=== PATIENT | female | born 1955 | race American Indian/Alaskan Native ===

== ENCOUNTER 2019-05-12 10:15 | Inpatient (IN) | payer OTHER ==
--- NOTE | 2019-05-12 11:32 | XRay Report ---
CHEST 2 VIEWS INDICATION: Chest Pain. COMPARISON: 06/24/2013 FINDINGS: Support devices: None. Heart: Mildly enlarged. Pulmonary vasculature: Increased. Lungs/pleura: No acute air space or interstitial disease. No pneumothorax. Additional findings: None. IMPRESSION: 1. Cardiomegaly and pulmonary venous hypertension. 2. No pulmonary edema, pleural effusion or pneumonia. Signer Name: Amandeep Pelaez MD Signed: 05/12/2019 11:28 AM Workstation Name: [id number]
--- NOTE | 2019-05-12 11:48 | Emergency Department Report ---
HPI - General Chief Complaint: Chest Pain Time Seen by Provider: 05/12/19 11:28 - HPI HPI: Room 24 The patient is a 64-year-old female presenting with chief complaint of chest pain. The patient states for the past 3 days she's had pain in her right upper extremity described as a constant "hurt." The patient states for the past 3 days she's also had intermittent substernal chest pain described as "striking" in nature. The patient states the pain comes and goes but has been increasing in frequency today. Patient denies shortness of breath or diaphoresis. Patient states she is chronically nauseous but has not experienced any vomiting. Patient states she's also been coughing for the past 2 days her cough has been nonproductive. Patient admits to subjective fever. Patient's last stress test occurred over 5 years ago and she's never had a cardiac catheterization Location: [See above] Duration: [See above] Quality: [See above] Severity: [See above] Timing: [See above] Context: [See above] Modifying factors: [See above] Associated signs and symptoms: [see above] ED Past Medical Hx - Past Medical History Hx Hypertension: Yes - Surgical History Additional Surgical History: Partial gastrectomy - Family History Family history: no significant - Social History Smoking Status: Never Smoker Substance Use Type: None - Medications Home Medications: Home Medications Medication Instructions Recorded Confirmed Last Taken Type Ibuprofen [Motrin 600 MG tab] 600 mg PO Q8H PRN #60 tablet 05/10/13 05/12/19 05/12/19 Rx Albuterol Sulfate [Ventolin HFA] 2 puff IH Q4H PRN #1 hfa.aer.ad 06/24/13 05/12/19 05/12/19 Rx Lisinopril [Zestril TAB] 20 mg PO QDAY #30 tablet 06/24/13 05/12/19 05/12/19 Rx Promethazine [Phenergan] 25 mg PO Q6HR PRN 05/12/19 05/12/19 05/07/19 History ED Review of Systems ROS: Stated complaint: CHEST PAIN/TIGHTNESS/WEAKNESS Other details as noted in HPI Constitutional: fever (subjective). denies: diaphoresis Eyes: denies: eye pain ENT: denies: throat pain Respiratory: denies: shortness of breath Cardiovascular: chest pain Endocrine: no symptoms reported Gastrointestinal: denies: vomiting Genitourinary: denies: dysuria Musculoskeletal: myalgia Neurological: denies: headache Physical Exam - Physical Exam Vital Signs: Vital Signs 05/12/19 10:37 Temperature 97.6 F Pulse Rate 66 Respiratory 20 Rate Blood Pressure 200/93 O2 Sat by Pulse 98 Oximetry Physical Exam: GENERAL: The patient is well-developed well-nourished female lying on stretcher not appearing to be in acute distress. [] HEENT: Normocephalic. Atraumatic. Extraocular motions are intact. Patient has moist mucous membranes. NECK: Supple. Trachea midline CHEST/LUNGS: Clear to auscultation. There is no respiratory distress noted. HEART/CARDIOVASCULAR: Regular. There is no tachycardia. There is no gallop rub or murmur. ABDOMEN: Abdomen is soft, nontender. Patient has normal bowel sounds. There is no abdominal distention. SKIN: There is no rash. There is no edema. There is no diaphoresis. NEURO: The patient is awake, alert, and oriented. The patient is cooperative. The patient has normal speech MUSCULOSKELETAL: There is no evidence of acute injury. ED Course Vital Signs 05/12/19 10:37 Temperature 97.6 F Pulse Rate 66 Respiratory 20 Rate Blood Pressure 200/93 O2 Sat by Pulse 98 Oximetry ED Medical Decision Making - Lab Data Result diagrams: 05/12/19 13:33 05/12/19 10:54 Laboratory Tests 05/12/19 05/12/19 05/12/19 10:54 10:54 11:43 WBC TNR RBC TNR Hgb TNR Hct TNR MCV TNR MCH TNR MCHC TNR RDW TNR Plt Count TNR Lymph % (Auto) TNR [place] % (Auto) TNR Eos % (Auto) TNR Baso % (Auto) TNR Lymph # TNR [place] # TNR Eos # TNR Baso # TNR Seg Neutrophils % TNR Seg Neutrophils # TNR D-Dimer Sodium 142 Potassium 3.9 Chloride 106.3 Carbon Dioxide 22 Anion Gap 18 BUN 9 Creatinine 0.6 L Estimated GFR > 60 BUN/Creatinine Ratio 15 Glucose 121 H Calcium 8.8 Total Bilirubin 0.20 AST 15 ALT < 5 L Alkaline Phosphatase 78 Total Creatine Kinase 157 H CK-MB (CK-2) 2.5 CK-MB (CK-2) Rel Index 1.5 Troponin T < 0.010 NT-Pro-B Natriuret Pep 25.26 Total Protein 7.4 Albumin 3.5 L Albumin/Globulin Ratio 0.9 05/12/19 05/12/19 12:01 13:33 WBC 6.6 RBC 4.34 Hgb 11.1 Hct 35.9 MCV 83 MCH 26 L MCHC 31 RDW 15.6 H Plt Count 292 Lymph % (Auto) 23.5 [place] % (Auto) 6.4 Eos % (Auto) 2.2 Baso % (Auto) 0.8 Lymph # 1.6 [place] # 0.4 Eos # 0.1 Baso # 0.1 Seg Neutrophils % 67.1 Seg Neutrophils # 4.5 D-Dimer 375.04 H Sodium Potassium Chloride Carbon Dioxide Anion Gap BUN Creatinine Estimated GFR BUN/Creatinine Ratio Glucose Calcium Total Bilirubin AST ALT Alkaline Phosphatase Total Creatine Kinase CK-MB (CK-2) CK-MB (CK-2) Rel Index Troponin T NT-Pro-B Natriuret Pep Total Protein Albumin Albumin/Globulin Ratio - EKG Data -: EKG Interpreted by Me EKG shows normal: sinus rhythm Rate: normal - EKG Data When compared to previous EKG there are: previous EKG unavailable Interpretation: nonspecific ST-T wave zainab (T-wave inversion in lead V2) - Radiology Data Radiology results: report reviewed (chest x-ray, CT chest), image reviewed (chest x-ray, CT chest) interpreted by me: Chest x-ray-no focal infiltrate, no pneumothorax [facility] [address] [place] [address] XRay Report Signed Patient: JAZMÍN PATE MR#: [id number] : 1955 Acct:[id number] Age/Sex: 64 / F ADM Date: 05/12/19 Loc: ED Attending Dr: Ordering Physician: CARMEN ROBERTS MD Date of Service: 05/12/19 Procedure(s): XR chest routine 2V Accession Number(s): [id number] cc: CARMEN ROBERTS MD Fluoro Time In Minutes: CHEST 2 VIEWS INDICATION: Chest Pain. COMPARISON: 06/24/2013 FINDINGS: Support devices: None. Heart: Mildly enlarged. Pulmonary vasculature: Increased. Lungs/pleura: No acute air space or interstitial disease. No pneumothorax. Additional findings: None. IMPRESSION: 1. Cardiomegaly and pulmonary venous hypertension. 2. No pulmonary edema, pleural effusion or pneumonia. Signer Name: Zak Dwyer MD Signed: 05/12/2019 11:28 AM Workstation Name: [id number] Transcribed By: REF Dictated By: ZAK DWYER MD Electronically Authenticated By: ZAK DWYER MD Signed Date/Time: 05/12/19 1128 DD/ 112 TD/TT: [facility] [address] [place] [address] Cat Scan Report Signed Patient: JAZMÍN PATE MR#: [id number] : 1955 Acct:[id number] Age/Sex: 64 / F ADM Date: 05/12/19 Loc: ED Attending Dr: Ordering Physician: CARMEN ROBERTS MD Date of Service: 05/12/19 Procedure(s): CT angio chest Accession Number(s): [id number] cc: CARMEN ROBERTS MD CTA of the chest with 3D Reconstruction Indication: ,chest pain Technique: TECHNIQUE: Axial CT images were obtained through the chest after injection of 100 cc of Omnipaque 350 IV contrast. 3 plane MIP reconstructions were produced. All CT scans at this location are perf ormed using CT dose reduction for ALARA by means of automated exposure control. COMPARISON: None Automatic exposure control was utilized in an attempt to reduce radiation dose. Findings: Pulmonary arteries: The main pulmonary artery and right and left pulmonary artery branches fill satisfactorily with contrast. No pulmonary embolus is seen. Lungs: There is mild peripheral interstitial disease in the lower lung zones. No focal infiltrate is seen. Mediastinum: Heart is mildly enlarged. There is a small hiatal hernia. Aorta: Normal in diameter. No dissection seen within limits of this exam. There is a cyst in the dome of the liver. Impression: No pulmonary embolus is seen Signer Name: Vance Capps MD Signed: 05/12/2019 3:41 PM Workstation Name: [id number] Transcribed By: SS Dictated By: Vance Capps MD Electronically Authenticated By: Vance Capps MD Signed Date/Time: 05/12/19 1541 DD/ 1538 TD/TT: - Differential Diagnosis ACS, pericarditis, pneumonia, PE Critical care attestation.: If time is entered above; I have spent that time in minutes in the direct care of this critically ill patient, excluding procedure time. ED Disposition Clinical Impression: Chest pain Disposition: OP ADMIT IP TO THIS HOSP Is pt being admited?: Yes Does the pt Need Aspirin: Yes Condition: Fair Instructions: Chest Pain (ED) Referrals: PRIMARY CARE,MD [Primary Care Provider] - 3-5 Days Time of Disposition: 15:50 (hospitalist paged (Dr Bryan))
[2019-05-12] MEDS ORDERED: cloNIDine 0.2 MG TAB PO ONE (11:49)
[2019-05-12 12:03] LABS: Albumin 3.5 g/dL (3.9-5); BUN/Creatinine Ratio 15; Blood Urea Nitrogen 9 mg/dL (7-17); Calcium 8.8 mg/dL (8.4-10.2); Hemolysis Index 3
[2019-05-12 12:10] LABS: Alanine Aminotransferase < 5 units/L (7-56)
[2019-05-12 12:13] LABS: Red Blood Count TNR M/mm3 (3.65-5.03)
[2019-05-12 12:14] LABS: Hematocrit TNR % (30.3-42.9); Hemoglobin TNR gm/dl (10.1-14.3)
[2019-05-12 12:33] LABS: Creatine Kinase MB 2.5 ng/mL (0.0-4.0)
[2019-05-12 12:42] LABS: Mean Corpuscular HGB Conc TNR % (30-34); Mean Corpuscular Volume TNR fl (79-97); Red Cell Distribution Width TNR % (13.2-15.2)
[2019-05-12 12:43] LABS: Eosinophils % (Auto) TNR % (0.0-4.3); Lymphocytes % (Auto) TNR % (13.4-35.0); Monocytes % (Auto) TNR % (0.0-7.3); Platelet Count TNR K/mm3 (140-440)
[2019-05-12 12:44] LABS: Basophils # (Auto) TNR K/mm3 (0.0-0.1); Basophils % (Auto) TNR % (0.0-1.8); Eosinophils # (Auto) TNR K/mm3 (0.0-0.4); Lymphocytes # (Auto) TNR K/mm3 (1.2-5.4); Monocytes # (Auto) TNR K/mm3 (0.0-0.8)
[2019-05-12 13:47] LABS: Basophils # (Auto) 0.1 K/mm3 (0.0-0.1); Basophils % (Auto) 0.8 % (0.0-1.8); Eosinophils # (Auto) 0.1 K/mm3 (0.0-0.4); Eosinophils % (Auto) 2.2 % (0.0-4.3); Hematocrit 35.9 % (30.3-42.9); Hemoglobin 11.1 gm/dl (10.1-14.3); Lymphocytes # (Auto) 1.6 K/mm3 (1.2-5.4); Lymphocytes % (Auto) 23.5 % (13.4-35.0); Mean Corpuscular HGB Conc 31 % (30-34); Mean Corpuscular Volume 83 fl (79-97); Monocytes # (Auto) 0.4 K/mm3 (0.0-0.8); Monocytes % (Auto) 6.4 % (0.0-7.3); Platelet Count 292 K/mm3 (140-440); Red Blood Count 4.34 M/mm3 (3.65-5.03); Red Cell Distribution Width 15.6 % (13.2-15.2)
--- NOTE | 2019-05-12 15:46 | Cat Scan Report ---
CTA of the chest with 3D Reconstruction Indication: ,chest pain Technique: TECHNIQUE: Axial CT images were obtained through the chest after injection of 100 cc of Omnipaque 350 IV contrast. 3 plane MIP reconstructions were produced. All CT scans at this location are performed using CT dose reduction for ALARA by means of automated exposure control. COMPARISON: None Automatic exposure control was utilized in an attempt to reduce radiation dose. Findings: Pulmonary arteries: The main pulmonary artery and right and left pulmonary artery branches fill satis factorily with contrast. No pulmonary embolus is seen. Lungs: There is mild peripheral interstitial disease in the lower lung zones. No focal infiltrate is seen. Mediastinum: Heart is mildly enlarged. There is a small hiatal hernia. Aorta: Normal in diameter. No dissection seen within limits of this exam. There is a cyst in the dome of the liver. Impression: No pulmonary embolus is seen Signer Name: Vance Capps MD Signed: 05/12/2019 3:41 PM Workstation Name: [id number]
[2019-05-12] MEDS ORDERED: ASPIRIN 325 MG TAB PO ONE (15:51)
[2019-05-12] MEDS ORDERED: IBUPROFEN 600 MG TAB PO PRN (21:25)
[2019-05-12] MEDS ORDERED: ALBUTEROL 8.5 GM INHALATION IH PRN (21:25)
[2019-05-12] MEDS ORDERED: HYDROmorphone 1 MG/1 ML INJ IV PRN (21:27)
[2019-05-12] MEDS ORDERED: ALBUTEROL 2.5 MG/3 ML NEBU IH PRN (21:45)
[2019-05-12] MEDS: FAMOTIDINE 20 MG/2 ML INJ IV SCH (21:52)
[2019-05-12] MEDS: LISINOPRIL 20 MG TAB PO SCH (21:53)
[2019-05-12] MEDS ORDERED: SODIUM CHLORIDE 0.9% 1000 ML 1,000 ML IV SCH (22:00)
--- NOTE | 2019-05-12 22:20 | Event Note ---
Date: 05/12/19 See history and physical IN the reports Chest pain rule out SD Hypertension mild malnutrition
--- NOTE | 2019-05-12 22:30 | History and Physical Report ---
CHIEF COMPLAINT: Left-sided chest pain for 3 days. HISTORY OF PRESENT ILLNESS: A 64-year-old female, who comes in for left-sided chest pain. Chest pain also radiates to the right extremity. Chest pain is retrosternal. Also, radiating to the epigastric region, intermittent in nature. No diaphoresis, no shortness of breath. No palpitations. No nausea or vomiting. The patient had stress test 5 years ago, but never had a cardiac catheterization. No exacerbating or relieving factors. PAST MEDICAL HISTORY: Significant for hypertension. PAST SURGICAL HISTORY: Significant for partial gastrectomy. FAMILY HISTORY: No significance. SOCIAL HISTORY: Never a smoker. Does not do alcohol or drugs. CURRENT MEDICATIONS: Lisinopril 20 mg once a day and albuterol 2 puffs q.4 hours p.r.n. REVIEW OF SYSTEMS: Significant for left-sided and retrosternal chest pain, intermittent in nature for 3 days. Otherwise, review of systems negative. PHYSICAL EXAMINATION: GENERAL: Elderly female, cooperative during examination. VITAL SIGNS: Blood pressure is 145/71, temperature is 98 and pulse is 61. HEENT: Unremarkable. Pupils are equal and reactive. NECK: Supple. No carotid artery bruit, no thyromegaly. LUNGS: Clear to auscultation and percussion. Good air entry. CARDIOVASCULAR: S1, S2 heard. No gallop, no murmur, no rub. Apical impulse in left fifth intercostal space and midclavicular line. ABDOMEN: Soft and benign. No hepatosplenomegaly. No guarding, no rigidity. Hernial orifices are normal. EXTREMITIES: Good pedal pulses. No pedal edema. CENTRAL NERVOUS SYSTEM: Alert and oriented x 4, nonfocal exam. SKIN: Normal. LABORATORY DATA: Significant for normal CBC. D-dimer is 375. Electrolytes are normal. Hemoglobin A1c is 6.3, glucose is 121, slightly high. Total CK is 157, CK-MB is 2.5, which is normal. First troponin is normal and albumin is 3.5. EKG shows sinus rhythm, heart rate of 72 per minute. No LVH. No ectopics. Chest x-ray, no acute findings. ASSESSMENT AND PLAN: 1. Chest pain, rule out myocardial infarction protocol. Serial troponins. Lexiscan in the morning. Cardiology consult requested. 2. Hypertension. Continue home antihypertensives in the form of lisinopril 20 mg once a day. 3. Asthma/chronic obstructive pulmonary disease. Continue Ventolin HFA p.r.n. 4. Arthritis. Continue ibuprofen p.r.n. 5. Deep venous thrombosis prophylaxis, heparin 5000 q.12 hours. 6. Malnutrition, very mild. Albumin is 3.5. May be dietary supplements and GI prophylaxis. JOB# [id number] ROXANE/NTS
[2019-05-13] MEDS: ONDANSETRON 4 MG/2 ML INJ IV PRN ×3 (01:16→21:34)
[2019-05-13] MEDS ORDERED: MAGNESIUM OXIDE 400 MG TAB PO ONE (01:30)
[2019-05-13 06:34] LABS: Albumin 3.6 g/dL (3.9-5); BUN/Creatinine Ratio 17; Blood Urea Nitrogen 12 mg/dL (7-17); Calcium 8.5 mg/dL (8.4-10.2); Hemolysis Index 0
[2019-05-13 06:37] LABS: Alanine Aminotransferase < 5 units/L (7-56)
[2019-05-13] MEDS ORDERED: REGADENOSON 0.4 MG/5 ML INJ IV ONE ×2 (09:12→09:25)
--- NOTE | 2019-05-13 10:59 | Consultation ---
History of Present Illness Consult date: 05/13/19 Consult reason: chest pain History of present illness: The patient is a 64-year-old female presenting with chief complaint of chest pain. The patient states for the past 3 days she's had pain in her right upper extremity described as a constant. The patient states for the past 3 days she's also had intermittent substernal chest pain described as "striking" in nature. Patient's last stress test occurred over 5 years ago and she's never had a cardiac catheterization Past History Past Medical History: hypertension Past Surgical History: Other (partial gastrectomy) Social history: no significant social history Family history: no significant family history Medications and Allergies Allergies Allergy/AdvReac Type Severity Reaction Status Date / Time Penicillins Allergy Rash Verified 05/12/19 12:22 Home Medications Medication Instructions Recorded Confirmed Last Taken Type Ibuprofen [Motrin 600 MG tab] 600 mg PO Q8H PRN #60 tablet 05/10/13 05/12/19 05/12/19 Rx Albuterol Sulfate [Ventolin HFA] 2 puff IH Q4H PRN #1 hfa.aer.ad 06/24/13 05/12/19 05/12/19 Rx Lisinopril [Zestril TAB] 20 mg PO QDAY #30 tablet 06/24/13 05/12/19 05/12/19 Rx Promethazine [Phenergan] 25 mg PO Q6HR PRN 05/12/19 05/12/19 05/07/19 History Active Meds: Active Medications Acetaminophen (Tylenol) 650 mg PO Q4H PRN PRN Reason: Pain MILD(1-3)/Fever >100.5/PORTILLO Albuterol (Proventil) 2.5 mg IH Q4HRT PRN PRN Reason: Cough Famotidine (Pepcid) 20 mg IV BID NIALL Last Admin: 05/12/19 21:52 Dose: 20 mg Documented by: Hydromorphone HCl (Dilaudid) 0.5 mg IV Q3H PRN PRN Reason: Pain , Severe (7-10) Last Admin: 05/12/19 21:51 Dose: 0.5 mg Documented by: Sodium Chloride (Nacl 0.9% 1000 Ml) 1,000 mls @ 42 mls/hr IV DIRECT NIALL Ibuprofen (Ibuprofen) 600 mg PO Q8H PRN PRN Reason: Pain Lisinopril (Zestril) 20 mg PO QDAY [facility] Last Admin: 05/12/19 21:53 Dose: 20 mg Documented by: Ondansetron HCl (Zofran) 4 mg IV Q8H PRN PRN Reason: Nausea And Vomiting Last Admin: 05/13/19 05:12 Dose: 4 mg Documented by: Promethazine HCl (Phenergan) 25 mg PO Q6HR PRN PRN Reason: Nausea Sodium Chloride (Sodium Chloride Flush Syringe 10 Ml) 10 ml IV BID [facility] Last Admin: 05/12/19 21:52 Dose: 10 ml Documented by: Sodium Chloride (Sodium Chloride Flush Syringe 10 Ml) 10 ml IV PRN PRN PRN Reason: LINE FLUSH Review of Systems All systems: negative Physical Examination Vital Signs Temp Pulse Resp BP Pulse Ox 97.6 F 66 20 200/93 98 05/12/19 10:37 05/12/19 10:37 05/12/19 10:37 05/12/19 10:37 05/12/19 10:37 General appearance: no acute distress Neck: Positive: neck supple Cardiac: Positive: Reg Rate and Rhythm Lungs: Positive: Normal Exam Neuro: Positive: Grossly Intact Abdomen: Positive: Soft Extremities: Present: normal Results 05/12/19 13:33 05/13/19 05:10 Cardiac Enzymes 05/12/19 05/12/19 05/13/19 Range/Units 10:54 11:43 05:10 AST 15 12 (5-40) units/L CK-MB (CK-2) 2.5 (0.0-4.0) ng/mL CBC 05/12/19 05/12/19 Range/Units 10:54 13:33 WBC TNR 6.6 RBC TNR 4.34 Hgb TNR 11.1 Hct TNR 35.9 Plt Count TNR 292 Lymph # TNR 1.6 [place] # TNR 0.4 Eos # TNR 0.1 Baso # TNR 0.1 Comprehensive Metabolic Panel 05/12/19 05/13/19 Range/Units 10:54 05:10 Sodium 142 141 (137-145) mmol/L Potassium 3.9 4.3 (3.6-5.0) mmol/L Chloride 106.3 107.9 H (98-107) mmol/L Carbon Dioxide 22 23 (22-30) mmol/L BUN 9 12 (7-17) mg/dL Creatinine 0.6 L 0.7 (0.7-1.2) mg/dL Glucose 121 H 114 H (65-100) mg/dL Calcium 8.8 8.5 (8.4-10.2) mg/dL AST 15 12 (5-40) units/L ALT < 5 L < 5 L (7-56) units/L Alkaline Phosphatase 78 76 (35-129) units/L Total Protein 7.4 7.2 (6.3-8.2) g/dL Albumin 3.5 L 3.6 L (3.9-5) g/dL - EKG Interpretation EKG: sinus rhythm EKG interpretations - Telemetry EKG Rhythm: Sinus Rhythm Assessment and Plan Atypical chest pain Normal ECG Negative troponin Normal CXR Essential hypertension Follow-up on lexiscan MPI findings
[2019-05-13] MEDS: FAMOTIDINE 20 MG/2 ML INJ IV SCH ×2 (13:04→21:34)
[2019-05-13] MEDS: LISINOPRIL 20 MG TAB PO SCH (13:04)
--- NOTE | 2019-05-13 15:39 | Progress Note ---
Assessment and Plan Assessment and plan: Patient is a 64 yo woman with a history of hypertension who presented to [facility] ED with chest pains. Stress test is positive, going for cardiac cath on Thursday. Chest pains, angina: continue medical management, [facility] on Thursday Hypertension: cardiac diet, anti-hypertensives Morbid obesity, bmi 43.8: outreach counselor on lifestyle modifications. Hyperglycemia: A1c 6.3, counseling done. Consider metformin with PCP, do not start here due to Cardiac cath dye interaction History Interval history: F/U chest pains Hospitalist Physical - Physical exam Narrative exam: GEN: WDWN, NAD, Awake, Alert, Orientated HEENT: NCAT, EOMI, PERRL, OP Clear NECK: supple, no adenopathy, no thyromegaly, no JVD CVS/HEART: RRR, normal S1S2, pulses present bilaterally CHEST/LUNGS: CTA B, Symmetrical chest expansion, good air entry bilaterally GI/Abdomen: soft, NTND, good bowel sounds, no guarding or rebound /Bladder: no suprapubic tenderness, no CVA or paraspinal tenderness EXT/Skin: no c/c/e, no obvious rash MSK: FROM x 4 Neuro: CN 2-12 grossly intact, no new focal deficits Psych: calm - Constitutional Vitals: Temp Pulse Resp BP Pulse Ox 97.7 F 62 18 161/77 99 05/13/19 07:45 05/13/19 14:38 05/13/19 14:38 05/13/19 13:04 05/13/19 14:38 General appearance: Present: no acute distress Results - Labs CBC & Chem 7: 05/12/19 13:33 05/13/19 05:10 Labs: Laboratory Last Values WBC 6.6 K/mm3 (4.5-11.0) 05/12/19 13:33 RBC 4.34 M/mm3 (3.65-5.03) 05/12/19 13:33 Hgb 11.1 gm/dl (10.1-14.3) 05/12/19 13:33 Hct 35.9 % (30.3-42.9) 05/12/19 13:33 MCV 83 fl (79-97) 05/12/19 13:33 MCH 26 pg (28-32) L 05/12/19 13:33 MCHC 31 % (30-34) 05/12/19 13:33 RDW 15.6 % (13.2-15.2) H 05/12/19 13:33 Plt Count 292 K/mm3 (140-440) 05/12/19 13:33 Lymph % (Auto) 23.5 % (13.4-35.0) 05/12/19 13:33 [place] % (Auto) 6.4 % (0.0-7.3) 05/12/19 13:33 Eos % (Auto) 2.2 % (0.0-4.3) 05/12/19 13:33 Baso % (Auto) 0.8 % (0.0-1.8) 05/12/19 13:33 Lymph # 1.6 K/mm3 (1.2-5.4) 05/12/19 13:33 [place] # 0.4 K/mm3 (0.0-0.8) 05/12/19 13:33 Eos # 0.1 K/mm3 (0.0-0.4) 05/12/19 13:33 Baso # 0.1 K/mm3 (0.0-0.1) 05/12/19 13:33 Seg Neutrophils % 67.1 % (40.0-70.0) 05/12/19 13:33 Seg Neutrophils # 4.5 K/mm3 (1.8-7.7) 05/12/19 13:33 375.04 ng/mlDDU (0-234) H 05/12/19 12:01 Sodium 141 mmol/L (137-145) 05/13/19 05:10 Potassium 4.3 mmol/L (3.6-5.0) 05/13/19 05:10 Chloride 107.9 mmol/L (98-107) H 05/13/19 05:10 Carbon Dioxide 23 mmol/L (22-30) 05/13/19 05:10 14 mmol/L 05/13/19 05:10 BUN 12 mg/dL (7-17) 05/13/19 05:10 0.7 mg/dL (0.7-1.2) 05/13/19 05:10 Estimated GFR > 60 ml/min 05/13/19 05:10 17 % 05/13/19 05:10 Glucose 114 mg/dL (65-100) H 05/13/19 05:10 POC Glucose 125 (70-105) H 05/13/19 12:42 6.3 % (4-6) H 05/12/19 13:33 Calcium 8.5 mg/dL (8.4-10.2) 05/13/19 05:10 0.20 mg/dL (0.1-1.2) 05/13/19 05:10 AST 12 units/L (5-40) 05/13/19 05:10 ALT < 5 units/L (7-56) L 05/13/19 05:10 76 units/L (35-129) 05/13/19 05:10 157 units/L (30-135) H 05/12/19 11:43 CK-MB (CK-2) 2.5 ng/mL (0.0-4.0) 05/12/19 11:43 CK-MB (CK-2) Rel Index 1.5 (0-4) 05/12/19 11:43 < 0.010 ng/mL (0.00-0.029) 05/13/19 05:10 NT-Pro-B Natriuret Pep 25.26 pg/mL (0-900) 05/12/19 11:43 7.2 g/dL (6.3-8.2) 05/13/19 05:10 3.6 g/dL (3.9-5) L 05/13/19 05:10 1.0 % 05/13/19 05:10 Active Medications - Current Medications Current Medications: Generic Name Dose Route Start Last Admin Trade Name Malcolmq PRN Reason Stop Dose Admin Acetaminophen 650 mg 05/12/19 21:27 Tylenol PO Q4H PRN Pain MILD(1-3)/Fever >100.5/PORTILLO Albuterol 2.5 mg 05/12/19 21:45 Proventil IH Q4HRT PRN Cough Famotidine 20 mg 05/12/19 22:00 05/13/19 13:04 Pepcid IV 20 mg BID NIALL Administration Hydromorphone HCl 0.5 mg 05/12/19 21:27 05/12/19 21:51 Dilaudid IV 0.5 mg Q3H PRN Administration Pain , Severe (7-10) Sodium Chloride 1,000 mls @ 42 mls/hr 05/12/19 22:00 Nacl 0.9% 1000 Ml IV DIRECT NIALL Ibuprofen 600 mg 05/12/19 21:25 Ibuprofen PO Q8H PRN Pain Lisinopril 20 mg 05/12/19 22:00 05/13/19 13:04 Zestril PO 20 mg QDAY NIALL Administration Ondansetron HCl 4 mg 05/12/19 21:27 05/13/19 05:12 Zofran IV 4 mg Q8H PRN Administration Nausea And Vomiting Promethazine HCl 25 mg 05/12/19 21:25 Phenergan PO Q6HR PRN Nausea Sodium Chloride 10 ml 05/12/19 22:00 05/13/19 13:04 Sodium Chloride Flush Syringe 10 Ml IV 10 ml BID NIALL Administration Sodium Chloride 10 ml 05/12/19 21:27 Sodium Chloride Flush Syringe 10 Ml IV PRN PRN LINE FLUSH
--- NOTE | 2019-05-13 22:46 | Treadmill Report ---
INDICATION: Chest pain. ORDERING PHYSICIAN: Dr. Bishop. FINDINGS: There is a moderate size moderately reversible apical inferior and mid inferolateral wall defect. The left ventricular ejection fraction is normal, measured at 60%. There is normal wall motion and wall thickening. CONCLUSION: 1. Abnormal myocardial perfusion scan revealing a moderate sized moderately reversible apical inferior as well as mid inferolateral wall defect. Ischemia cannot be excluded. 2. Normal left ventricular size and systolic function with an ejection fraction measured at 60%. JOB# [id number] AKTorri/NTS
[2019-05-13] MEDS: ACETAMINOPHEN 325 MG TAB PO PRN (23:32)
[2019-05-14] MEDS: ONDANSETRON 4 MG/2 ML INJ IV PRN (09:11)
[2019-05-14] MEDS: FAMOTIDINE 20 MG/2 ML INJ IV SCH (09:11)
[2019-05-14] MEDS: LISINOPRIL 20 MG TAB PO SCH (09:12)
--- NOTE | 2019-05-14 12:12 | Progress Note ---
Assessment and Plan - Patient Problems (1) Abnormal thallium stress test Current Visit: Yes Status: Acute Plan to address problem: Patient has been recommended for a cardiac catheterization on Thursday morning. Subjective Date of service: 05/14/19 Interval history: Patient is comfortable, no cardiac complaints, looks and feels well. Objective Vital Signs Temp Pulse Pulse Pulse Pulse Pulse Resp 05/14/19 09:12 61 05/14/19 07:37 98.0 F 18 05/14/19 04:41 98.0 F 57 L 18 05/14/19 02:00 62 18 05/13/19 23:15 98.0 F 67 18 05/13/19 22:00 56 L 05/13/19 21:53 56 L 05/13/19 19:13 98.3 F 74 20 05/13/19 17:11 97.9 F 60 18 05/13/19 14:38 62 58 L 58 L 18 05/13/19 13:04 62 Resp BP Pulse Ox 05/14/19 09:12 147/77 05/14/19 07:37 136/69 88 05/14/19 04:41 134/77 97 05/14/19 02:00 05/13/19 23:15 132/60 97 05/13/19 22:00 05/13/19 21:53 18 100 05/13/19 19:13 143/63 95 05/13/19 17:11 140/71 93 05/13/19 14:38 99 05/13/19 13:04 161/77 - Physical Examination General: Appears Well, No Apparent Distress HEENT: Positive: PERRL Neck: Positive: neck supple Cardiac: Positive: Reg Rate and Rhythm Lungs: Positive: clear to auscultation Neuro: Positive: Grossly Intact Abdomen: Positive: Soft Skin: Positive: Clear Extremities: Absent: edema
--- NOTE | 2019-05-14 12:44 | Progress Note ---
Assessment and Plan Assessment and plan: Patient is a 64 yo woman with a history of hypertension who presented to [facility] ED with chest pains. Stress test is positive, going for cardiac cath on Thursday. Chest pains, angina: continue medical management, [facility] on Thursday Hypertension: cardiac diet, anti-hypertensives Morbid obesity, bmi 43.8: employment counselor on lifestyle modifications. Hyperglycemia: A1c 6.3, counseling done. Consider metformin with PCP, do not start here due to Cardiac cath dye interaction History Interval history: F/U chest pains Hospitalist Physical - Physical exam Narrative exam: GEN: WDWN, NAD, Awake, Alert, Orientated HEENT: NCAT, EOMI, PERRL, OP Clear NECK: supple, no adenopathy, no thyromegaly, no JVD CVS/HEART: RRR, normal S1S2, pulses present bilaterally CHEST/LUNGS: CTA B, Symmetrical chest expansion, good air entry bilaterally GI/Abdomen: soft, NTND, good bowel sounds, no guarding or rebound /Bladder: no suprapubic tenderness, no CVA or paraspinal tenderness EXT/Skin: no c/c/e, no obvious rash MSK: FROM x 4 Neuro: CN 2-12 grossly intact, no new focal deficits Psych: calm - Constitutional Vitals: Temp Pulse Resp BP Pulse Ox 98.1 F 61 18 144/65 88 05/14/19 12:05 05/14/19 09:12 05/14/19 12:05 05/14/19 12:05 05/14/19 07:37 General appearance: Present: no acute distress Results - Labs CBC & Chem 7: 05/12/19 13:33 05/13/19 05:10 Labs: Laboratory Last Values WBC 6.6 K/mm3 (4.5-11.0) 05/12/19 13:33 RBC 4.34 M/mm3 (3.65-5.03) 05/12/19 13:33 Hgb 11.1 gm/dl (10.1-14.3) 05/12/19 13:33 Hct 35.9 % (30.3-42.9) 05/12/19 13:33 MCV 83 fl (79-97) 05/12/19 13:33 MCH 26 pg (28-32) L 05/12/19 13:33 MCHC 31 % (30-34) 05/12/19 13:33 RDW 15.6 % (13.2-15.2) H 05/12/19 13:33 Plt Count 292 K/mm3 (140-440) 05/12/19 13:33 Lymph % (Auto) 23.5 % (13.4-35.0) 05/12/19 13:33 [place] % (Auto) 6.4 % (0.0-7.3) 05/12/19 13:33 Eos % (Auto) 2.2 % (0.0-4.3) 05/12/19 13:33 Baso % (Auto) 0.8 % (0.0-1.8) 05/12/19 13:33 Lymph # 1.6 K/mm3 (1.2-5.4) 05/12/19 13:33 [place] # 0.4 K/mm3 (0.0-0.8) 05/12/19 13:33 Eos # 0.1 K/mm3 (0.0-0.4) 05/12/19 13:33 Baso # 0.1 K/mm3 (0.0-0.1) 05/12/19 13:33 Seg Neutrophils % 67.1 % (40.0-70.0) 05/12/19 13:33 Seg Neutrophils # 4.5 K/mm3 (1.8-7.7) 05/12/19 13:33 375.04 ng/mlDDU (0-234) H 05/12/19 12:01 Sodium 141 mmol/L (137-145) 05/13/19 05:10 Potassium 4.3 mmol/L (3.6-5.0) 05/13/19 05:10 Chloride 107.9 mmol/L (98-107) H 05/13/19 05:10 Carbon Dioxide 23 mmol/L (22-30) 05/13/19 05:10 14 mmol/L 05/13/19 05:10 BUN 12 mg/dL (7-17) 05/13/19 05:10 0.7 mg/dL (0.7-1.2) 05/13/19 05:10 Estimated GFR > 60 ml/min 05/13/19 05:10 17 % 05/13/19 05:10 Glucose 114 mg/dL (65-100) H 05/13/19 05:10 POC Glucose 105 (70-105) 05/14/19 12:12 6.3 % (4-6) H 05/12/19 13:33 Calcium 8.5 mg/dL (8.4-10.2) 05/13/19 05:10 0.20 mg/dL (0.1-1.2) 05/13/19 05:10 AST 12 units/L (5-40) 05/13/19 05:10 ALT < 5 units/L (7-56) L 05/13/19 05:10 76 units/L (35-129) 05/13/19 05:10 157 units/L (30-135) H 05/12/19 11:43 CK-MB (CK-2) 2.5 ng/mL (0.0-4.0) 05/12/19 11:43 CK-MB (CK-2) Rel Index 1.5 (0-4) 05/12/19 11:43 < 0.010 ng/mL (0.00-0.029) 05/13/19 05:10 NT-Pro-B Natriuret Pep 25.26 pg/mL (0-900) 05/12/19 11:43 7.2 g/dL (6.3-8.2) 05/13/19 05:10 3.6 g/dL (3.9-5) L 05/13/19 05:10 1.0 % 05/13/19 05:10 Active Medications - Current Medications Current Medications: Generic Name Dose Route Start Last Admin Trade Name Malcolm PRN Reason Stop Dose Admin Acetaminophen 650 mg 05/12/19 21:27 05/13/19 23:32 Tylenol PO 650 mg Q4H PRN Administration Pain MILD(1-3)/Fever >100.5/PORTILLO Acetaminophen/Hydrocodone Bitart 1 each 05/14/19 10:57 [place] 5/325 PO Q4H PRN Pain, Moderate (4-6) Albuterol 2.5 mg 05/12/19 21:45 Proventil IH Q4HRT PRN Cough Lisinopril 20 mg 05/12/19 22:00 05/14/19 09:12 Zestril PO 20 mg QDAY NIALL Administration Ondansetron HCl 4 mg 05/12/19 21:27 05/14/19 09:11 Zofran IV 4 mg Q8H PRN Administration Nausea And Vomiting Pantoprazole Sodium 40 mg 05/14/19 11:00 Protonix PO QDAY NIALL Promethazine HCl 25 mg 05/12/19 21:25 Phenergan PO Q6HR PRN Nausea Sodium Chloride 10 ml 05/12/19 22:00 05/14/19 09:21 Sodium Chloride Flush Syringe 10 Ml IV 10 ml BID NIALL Administration Sodium Chloride 10 ml 05/12/19 21:27 Sodium Chloride Flush Syringe 10 Ml IV PRN PRN LINE FLUSH
[2019-05-14] MEDS: PROMETHAZINE 25 MG TAB PO PRN (13:57)
[2019-05-14] MEDS: PANTOPRAZOLE 40 MG TAB PO SCH (14:52)
--- NOTE | 2019-05-15 09:52 | Progress Note ---
Assessment and Plan Assessment and plan: Patient is a 64 yo woman with a history of hypertension who presented to [facility] ED with chest pains. Stress test is positive, going for cardiac cath on Thursday. 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 Hyperglycemia: A1c 6.3, counseling done. Consider metformin with PCP, do not start here due to Cardiac cath dye interaction History Interval history: F/U chest pains Hospitalist Physical - Physical exam Narrative exam: GEN: WDWN, NAD, Awake, Alert, Orientated HEENT: NCAT, EOMI, PERRL, OP Clear NECK: supple, no adenopathy, no thyromegaly, no JVD CVS/HEART: RRR, normal S1S2, pulses present bilaterally CHEST/LUNGS: CTA B, Symmetrical chest expansion, good air entry bilaterally GI/Abdomen: soft, NTND, good bowel sounds, no guarding or rebound /Bladder: no suprapubic tenderness, no CVA or paraspinal tenderness EXT/Skin: no c/c/e, no obvious rash MSK: FROM x 4 Neuro: CN 2-12 grossly intact, no new focal deficits Psych: calm - Constitutional Vitals: Temp Pulse Resp BP Pulse Ox 97.9 F 65 18 148/64 96 05/15/19 03:32 05/15/19 03:32 05/15/19 03:32 05/15/19 03:32 05/15/19 03:32 General appearance: Present: no acute distress Results - Labs CBC & Chem 7: 05/12/19 13:33 05/13/19 05:10 Labs: Laboratory Last Values WBC 6.6 K/mm3 (4.5-11.0) 05/12/19 13:33 RBC 4.34 M/mm3 (3.65-5.03) 05/12/19 13:33 Hgb 11.1 gm/dl (10.1-14.3) 05/12/19 13:33 Hct 35.9 % (30.3-42.9) 05/12/19 13:33 MCV 83 fl (79-97) 05/12/19 13:33 MCH 26 pg (28-32) L 05/12/19 13:33 MCHC 31 % (30-34) 05/12/19 13:33 RDW 15.6 % (13.2-15.2) H 05/12/19 13:33 Plt Count 292 K/mm3 (140-440) 05/12/19 13:33 Lymph % (Auto) 23.5 % (13.4-35.0) 05/12/19 13:33 [place] % (Auto) 6.4 % (0.0-7.3) 05/12/19 13:33 Eos % (Auto) 2.2 % (0.0-4.3) 05/12/19 13:33 Baso % (Auto) 0.8 % (0.0-1.8) 05/12/19 13:33 Lymph # 1.6 K/mm3 (1.2-5.4) 05/12/19 13:33 [place] # 0.4 K/mm3 (0.0-0.8) 05/12/19 13:33 Eos # 0.1 K/mm3 (0.0-0.4) 05/12/19 13:33 Baso # 0.1 K/mm3 (0.0-0.1) 05/12/19 13:33 Seg Neutrophils % 67.1 % (40.0-70.0) 05/12/19 13:33 Seg Neutrophils # 4.5 K/mm3 (1.8-7.7) 05/12/19 13:33 375.04 ng/mlDDU (0-234) H 05/12/19 12:01 Sodium 141 mmol/L (137-145) 05/13/19 05:10 Potassium 4.3 mmol/L (3.6-5.0) 05/13/19 05:10 Chloride 107.9 mmol/L (98-107) H 05/13/19 05:10 Carbon Dioxide 23 mmol/L (22-30) 05/13/19 05:10 14 mmol/L 05/13/19 05:10 BUN 12 mg/dL (7-17) 05/13/19 05:10 0.7 mg/dL (0.7-1.2) 05/13/19 05:10 Estimated GFR > 60 ml/min 05/13/19 05:10 17 % 05/13/19 05:10 Glucose 114 mg/dL (65-100) H 05/13/19 05:10 POC Glucose 86 (70-105) 05/15/19 07:45 6.3 % (4-6) H 05/12/19 13:33 Calcium 8.5 mg/dL (8.4-10.2) 05/13/19 05:10 0.20 mg/dL (0.1-1.2) 05/13/19 05:10 AST 12 units/L (5-40) 05/13/19 05:10 ALT < 5 units/L (7-56) L 05/13/19 05:10 76 units/L (35-129) 05/13/19 05:10 157 units/L (30-135) H 05/12/19 11:43 CK-MB (CK-2) 2.5 ng/mL (0.0-4.0) 05/12/19 11:43 CK-MB (CK-2) Rel Index 1.5 (0-4) 05/12/19 11:43 < 0.010 ng/mL (0.00-0.029) 05/13/19 05:10 NT-Pro-B Natriuret Pep 25.26 pg/mL (0-900) 05/12/19 11:43 7.2 g/dL (6.3-8.2) 05/13/19 05:10 3.6 g/dL (3.9-5) L 05/13/19 05:10 1.0 % 05/13/19 05:10 Active Medications - Current Medications Current Medications: Generic Name Dose Route Start Last Admin Trade Name Malcolm PRN Reason Stop Dose Admin Acetaminophen 650 mg 05/12/19 21:27 05/13/19 23:32 Tylenol PO 650 mg Q4H PRN Administration Pain MILD(1-3)/Fever >100.5/PORTILLO Acetaminophen/Hydrocodone Bitart 1 each 05/14/19 10:57 [place] 5/325 PO Q4H PRN Pain, Moderate (4-6) Albuterol 2.5 mg 05/12/19 21:45 Proventil IH Q4HRT PRN Cough Lisinopril 20 mg 05/12/19 22:00 05/14/19 09:12 Zestril PO 20 mg QDAY NIALL Administration Ondansetron HCl 4 mg 05/12/19 21:27 05/14/19 09:11 Zofran IV 4 mg Q8H PRN Administration Nausea And Vomiting Pantoprazole Sodium 40 mg 05/14/19 11:00 05/14/19 14:52 Protonix PO 40 mg QDAY NIALL Administration Promethazine HCl 25 mg 05/12/19 21:25 05/14/19 13:57 Phenergan PO 25 mg Q6HR PRN Administration Nausea Sodium Chloride 10 ml 05/12/19 22:00 05/15/19 01:25 Sodium Chloride Flush Syringe 10 Ml IV Not Given BID NIALL Sodium Chloride 10 ml 05/12/19 21:27 Sodium Chloride Flush Syringe 10 Ml IV PRN PRN LINE FLUSH
[2019-05-15] MEDS: PANTOPRAZOLE 40 MG TAB PO SCH (09:56)
[2019-05-15] MEDS: LISINOPRIL 20 MG TAB PO SCH (09:56)
[2019-05-15] MEDS ORDERED: SODIUM CHLORIDE 0.9% 500 ML 500 ML IV SCH (16:00)
--- NOTE | 2019-05-15 17:08 | Progress Note ---
Assessment and Plan - Patient Problems (1) Abnormal thallium stress test Current Visit: Yes Status: Acute Plan to address problem: Patient has been recommended for a cardiac catheterization tomorrow morning. Subjective Date of service: 05/15/19 Interval history: Patient is comfortable, no cardiac complaints, looks and feels well. Objective Vital Signs Temp Pulse Pulse Resp Resp Resp BP 05/15/19 16:01 20 05/15/19 13:00 05/15/19 11:22 98.2 F 18 188/79 05/15/19 10:00 65 05/15/19 07:40 98.1 F 18 152/65 05/15/19 03:32 97.9 F 65 18 148/64 05/15/19 00:02 97.7 F 67 20 161/69 05/14/19 22:00 67 05/14/19 20:38 67 05/14/19 20:18 65 18 05/14/19 20:14 97.6 F 67 20 142/67 Pulse Ox 05/15/19 16:01 05/15/19 13:00 98 05/15/19 11:22 05/15/19 10:00 05/15/19 07:40 05/15/19 03:32 96 05/15/19 00:02 96 05/14/19 22:00 05/14/19 20:38 05/14/19 20:18 98 05/14/19 20:14 97 - Physical Examination General: Appears Well, No Apparent Distress HEENT: Positive: PERRL Neck: Positive: neck supple Cardiac: Positive: Reg Rate and Rhythm Lungs: Positive: clear to auscultation Neuro: Positive: Grossly Intact Abdomen: Positive: Soft Skin: Positive: Clear Extremities: Absent: edema
[2019-05-16 09:49] LABS: INR 0.95 (0.87-1.13)
[2019-05-16] MEDS: LISINOPRIL 20 MG TAB PO SCH (11:10)
[2019-05-16] MEDS: PANTOPRAZOLE 40 MG TAB PO SCH (11:11)
[2019-05-16] MEDS ORDERED: ASPIRIN 325 MG TAB ONE (13:39)
[2019-05-16] MEDS ORDERED: SODIUM CHLORIDE 0.9% 500 ML 500 ML ONE (14:13)
[2019-05-16] MEDS: hydrALAZINE 20 MG/1 ML INJ ONE ×2 (14:13→14:58)
[2019-05-16] MEDS ORDERED: HEPARIN 10,000 UNITS/10 ML VIAL ONE (14:15)
[2019-05-16] MEDS ORDERED: LIDOCAINE (2%) 20 MG/1 ML VIAL 20 ML MDV INFILTRATI ONE (14:16)
[2019-05-16] MEDS ORDERED: NITROGLYCERIN SYRINGE 3 ML ONE (14:16)
[2019-05-16] MEDS ORDERED: VERAPAMIL 5 MG/2 ML INJ ONE (14:16)
[2019-05-16] MEDS ORDERED: HEPARIN/NS 5000 UNIT/500ML 1,000 ML IR ONE (14:17)
[2019-05-16] MEDS ORDERED: MIDAZOLAM 2 MG/2 ML INJ ONE (14:23)
[2019-05-16] MEDS ORDERED: fentaNYL 100 MCG/2 ML INJ ONE (14:23)
--- NOTE | 2019-05-16 15:25 | Event Note ---
Date: 05/16/19 Patient underwent a cardiac catheterization via the right radial approach, no complications. We found angiographically normal coronary arteries, and normal left ventricle systolic function with ejection fraction 60%. Patient is stable for cardiac discharge. I note that she remains severely hypertensive, systolic blood pressure 170-180 on lisinopril 20 mg. Recommend the addition of Procardia XL 60 mg and chlorthalidone 25 mg to her outpatient regimen for optimal blood pressure control.
[2019-05-16] MEDS: HYDROcodone/ACETAMINOPHEN 5-325 MG TAB PO PRN (15:55)
[2019-05-16] MEDS ORDERED: SODIUM CHLORIDE 0.9% 1000 ML 1,000 ML IV SCH (16:00)
[2019-05-16] MEDS: ONDANSETRON 4 MG/2 ML INJ IV PRN (16:06)
[2019-05-16] MEDS ORDERED: hydrALAZINE 20 MG/1 ML INJ IV PRN (16:12)
[2019-05-16] MEDS ORDERED: METOCLOPRAMIDE 10 MG/2 ML INJ IV PRN (16:12)
[2019-05-16] MEDS: NIFEdipine XL 60 MG TAB PO SCH (16:13)
--- NOTE | 2019-05-16 16:13 | Progress Note ---
Assessment and Plan Assessment and plan: Patient is a 64 yo woman with a history of hypertension who presented to [facility] ED with chest pains. Stress test is positive, going for cardiac cath on Thursday. Chest pains, most likely GERD related: consult GI, start ppi Hypertension: cardiac diet, anti-hypertensives Morbid obesity, bmi 43.8: counseling aide on lifestyle modifications. Hyperglycemia: A1c 6.3, counseling done. Consider metformin with PCP, do not start here due to Cardiac cath dye interaction Intractable N/V: consulted GI 05/16/19: "Patient underwent a cardiac catheterization via the right radial approach, no complications. We found angiographically normal coronary arteries, and normal left ventricle systolic function with ejection fraction 60%. Patient is stable for cardiac discharge. I note that she remains severely hypertensive, systolic blood pressure 170-180 on lisinopril 20 mg. Recommend the addition of Procardia XL 60 mg and chlorthalidone 25 mg to her outpatient regimen for optimal blood pressure control." per Dr. White Disposition: continue inpatient care, was going to discharge but she is vom iting. Will treat with iv zofran, iv protonix, hold discharge. Consulted GI, added iv hydralazine prn History Interval history: F/U chest pains. Patient is back from Cardiac cath, she is actively vomiting and bp uncontrolled. Hospitalist Physical - Physical exam Narrative exam: GEN: WDWN, NAD, Awake, Alert, Orientated HEENT: NCAT, EOMI, PERRL, OP Clear NECK: supple, no adenopathy, no thyromegaly, no JVD CVS/HEART: RRR, normal S1S2, pulses present bilaterally CHEST/LUNGS: CTA B, Symmetrical chest expansion, good air entry bilaterally GI/Abdomen: soft, NTND, +old surgical epigastric scar, good bowel sounds, no guarding or rebound /Bladder: no suprapubic tenderness, no CVA or paraspinal tenderness EXT/Skin: no c/c/e, no obvious rash MSK: FROM x 4 Neuro: CN 2-12 grossly intact, no new focal deficits Psych: calm - Constitutional Vitals: Temp Pulse Resp BP Pulse Ox 97.9 F 67 18 166/76 99 05/16/19 11:30 05/16/19 11:30 05/16/19 11:30 05/16/19 11:30 05/16/19 10:00 General appearance: Present: no acute distress Results - Labs CBC & Chem 7: 05/12/19 13:33 05/13/19 05:10 Labs: Laboratory Last Values WBC 6.6 K/mm3 (4.5-11.0) 05/12/19 13:33 RBC 4.34 M/mm3 (3.65-5.03) 05/12/19 13:33 Hgb 11.1 gm/dl (10.1-14.3) 05/12/19 13:33 Hct 35.9 % (30.3-42.9) 05/12/19 13:33 MCV 83 fl (79-97) 05/12/19 13:33 MCH 26 pg (28-32) L 05/12/19 13:33 MCHC 31 % (30-34) 05/12/19 13:33 RDW 15.6 % (13.2-15.2) H 05/12/19 13:33 Plt Count 292 K/mm3 (140-440) 05/12/19 13:33 Lymph % (Auto) 23.5 % (13.4-35.0) 05/12/19 13:33 [place] % (Auto) 6.4 % (0.0-7.3) 05/12/19 13:33 Eos % (Auto) 2.2 % (0.0-4.3) 05/12/19 13:33 Baso % (Auto) 0.8 % (0.0-1.8) 05/12/19 13:33 Lymph # 1.6 K/mm3 (1.2-5.4) 05/12/19 13:33 [place] # 0.4 K/mm3 (0.0-0.8) 05/12/19 13:33 Eos # 0.1 K/mm3 (0.0-0.4) 05/12/19 13:33 Baso # 0.1 K/mm3 (0.0-0.1) 05/12/19 13:33 Seg Neutrophils % 67.1 % (40.0-70.0) 05/12/19 13:33 Seg Neutrophils # 4.5 K/mm3 (1.8-7.7) 05/12/19 13:33 PT 12.4 Sec. (12.2-14.9) 05/16/19 08:51 INR 0.95 (0.87-1.13) 05/16/19 08:51 D-Dimer 375.04 ng/mlDDU (0-234) H 05/12/19 12:01 Sodium 141 mmol/L (137-145) 05/13/19 05:10 Potassium 4.3 mmol/L (3.6-5.0) 05/13/19 05:10 Chloride 107.9 mmol/L (98-107) H 05/13/19 05:10 Carbon Dioxide 23 mmol/L (22-30) 05/13/19 05:10 Anion Gap 14 mmol/L 05/13/19 05:10 BUN 12 mg/dL (7-17) 05/13/19 05:10 Creatinine 0.7 mg/dL (0.7-1.2) 05/13/19 05:10 Estimated GFR > 60 ml/min 05/13/19 05:10 BUN/Creatinine Ratio 17 % 05/13/19 05:10 Glucose 114 mg/dL (65-100) H 05/13/19 05:10 POC Glucose 78 (70-105) 05/16/19 12:35 Hemoglobin A1c 6.3 % (4-6) H 05/12/19 13:33 Calcium 8.5 mg/dL (8.4-10.2) 05/13/19 05:10 Total Bilirubin 0.20 mg/dL (0.1-1.2) 05/13/19 05:10 AST 12 units/L (5-40) 05/13/19 05:10 ALT < 5 units/L (7-56) L 05/13/19 05:10 Alkaline Phosphatase 76 units/L (35-129) 05/13/19 05:10 Total Creatine Kinase 157 units/L (30-135) H 05/12/19 11:43 CK-MB (CK-2) 2.5 ng/mL (0.0-4.0) 05/12/19 11:43 CK-MB (CK-2) Rel Index 1.5 (0-4) 05/12/19 11:43 Troponin T < 0.010 ng/mL (0.00-0.029) 05/13/19 05:10 NT-Pro-B Natriuret Pep 25.26 pg/mL (0-900) 05/12/19 11:43 Total Protein 7.2 g/dL (6.3-8.2) 05/13/19 05:10 Albumin 3.6 g/dL (3.9-5) L 05/13/19 05:10 Albumin/Globulin Ratio 1.0 % 05/13/19 05:10 Active Medications - Current Medications Current Medications: Generic Name Dose Route Start Last Admin Trade Name Freq PRN Reason Stop Dose Admin Acetaminophen 650 mg 05/12/19 21:27 05/13/19 23:32 Tylenol PO 650 mg Q4H PRN Administration Pain MILD(1-3)/Fever >100.5/PORTILLO Acetaminophen/Hydrocodone Bitart 1 each 05/14/19 10:57 05/16/19 15:55 [place] 5/325 PO 1 each Q4H PRN Administration Pain, Moderate (4-6) Albuterol 2.5 mg 05/12/19 21:45 Proventil IH Q4HRT PRN Cough Chlorthalidone 25 mg 05/16/19 17:00 Thalitone PO QDAY NIALL Sodium Chloride 1,000 mls @ 100 mls/hr 05/16/19 16:00 05/16/19 15:55 Nacl 0.9% 1000 Ml IV 05/16/19 19:59 100 mls/hr DIRECT NIALL Administration Lisinopril 20 mg 05/12/19 22:00 05/16/19 11:10 Zestril PO 20 mg QDAY NIALL Administration Nifedipine 60 mg 05/16/19 17:00 Procardia Xl PO QDAY NIALL Ondansetron HCl 4 mg 05/12/19 21:27 05/16/19 16:06 Zofran IV 4 mg Q8H PRN Administration Nausea And Vomiting Pantoprazole Sodium 40 mg 05/14/19 11:00 05/16/19 11:11 Protonix PO Not Given QDAY NIALL Promethazine HCl 25 mg 05/12/19 21:25 05/14/19 13:57 Phenergan PO 25 mg Q6HR PRN Administration Nausea Sodium Chloride 10 ml 05/12/19 22:00 05/16/19 11:11 Sodium Chloride Flush Syringe 10 Ml IV 10 ml BID NIALL Administration Sodium Chloride 10 ml 05/12/19 21:27 Sodium Chloride Flush Syringe 10 Ml IV PRN PRN LINE FLUSH
--- NOTE | 2019-05-16 16:54 | Cardiac Catherization Report ---
REASON FOR PROCEDURE: Chest pain and abnormal thallium stress test. PROCEDURES: 1. Left heart catheterization. 2. Selective left and right coronary angiography. 3. Left ventricular angiography. SEDATION TIME: Start 1441, end 1458. The patient was prepped and draped in a sterile fashion after informed consent. The right radial cath site was prepped and draped after a negative Derrek's test. A left coronary angiography was performed using a #3.5 left Nova catheter. A #4 right Nova was used for right coronary angiography. A pigtail catheter was used for left ventricle angiography. The catheters were removed, sheath removed, and hemostasis achieved using manual compression. The patient was returned to the post procedure unit in stable condition. There were no complications. FINDINGS: HEMODYNAMICS: Left ventricular end-diastolic pressure was 19, following coronary angiography. Ascending aortic pressure was 171/78. There was no significant pressure gradient on pullback across the aortic valve. CORONARY ANGIOGRAPHY: Left main coronary artery was angiographically normal. Left anterior descending artery and its diagonal branches were angiographically normal. The circumflex artery and its obtuse marginal branches were angiographically normal. The right coronary artery was dominant and similarly angiographically normal. Left ventricular systolic function was normal, ejection fraction 60%. CONCLUSION: 1. Angiographically normal coronary arteries. 2. Normal left ventricular systolic function, ejection fraction 60%. RECOMMENDATION: Risk factor modification. JOB# [id number] CA/NTS
[2019-05-16] MEDS: PROMETHAZINE 25 MG TAB PO PRN (17:09)
[2019-05-16] MEDS: CHLORTHALIDONE 25 MG TAB PO SCH (17:09)
[2019-05-16] MEDS ORDERED: MORPHINE 4 MG/1 ML INJ IV PRN (17:42)
[2019-05-16] MEDS ORDERED: MORPHINE 2 MG/1 ML INJ IV ONE (18:00)
[2019-05-16] MEDS: PANTOPRAZOLE 40 MG INJ IV SCH (21:28)
[2019-05-17] MEDS: ACETAMINOPHEN 325 MG TAB PO PRN ×2 (07:18→12:28)
--- NOTE | 2019-05-17 09:56 | Progress Note ---
Assessment and Plan Atypical chest pain Normal ECG Negative troponin LHC done this admission reports normal coronary arteries and normal left ventricle systolic function with ejection fraction 60%. Hypertension controlled with Procardia XL, Lisinopril, and Chlorthalidone Stable cardiac goetz for discharge home today. Subjective Date of service: 05/17/19 Interval history: Patient denies chest pain and shortness of breath. Current BP 124/50. Objective Vital Signs Temp Pulse Pulse Pulse Pulse Resp BP 05/17/19 08:48 98.7 F 82 18 124/50 05/17/19 08:42 81 05/17/19 04:21 98.2 F 81 18 122/63 05/16/19 23:20 76 05/16/19 23:14 97.8 F 81 18 170/82 05/16/19 22:00 73 05/16/19 20:27 97.4 F L 77 20 187/79 05/16/19 18:00 76 23 05/16/19 17:50 87 184/96 05/16/19 17:36 184/96 05/16/19 16:30 75 21 05/16/19 15:45 98.0 F 75 19 05/16/19 12:00 61 05/16/19 11:30 97.9 F 67 18 05/16/19 11:10 10 L 176/81 05/16/19 11:02 63 176/81 05/16/19 10:00 61 69 69 69 19 BP Pulse Ox 05/17/19 08:48 96 05/17/19 08:42 05/17/19 04:21 100 05/16/19 23:20 05/16/19 23:14 100 05/16/19 22:00 05/16/19 20:27 100 05/16/19 18:00 176/89 05/16/19 17:50 05/16/19 17:36 05/16/19 16:30 169/79 97 05/16/19 15:45 160/80 97 05/16/19 12:00 05/16/19 11:30 166/76 05/16/19 11:10 05/16/19 11:02 93 05/16/19 10:00 99 - Physical Examination General: No Apparent Distress HEENT: Positive: PERRL Cardiac: Positive: Reg Rate and Rhythm Lungs: Positive: Decreased Breath Sounds Neuro: Positive: Grossly Intact Abdomen: Positive: Soft Extremities: Absent: edema
[2019-05-17] MEDS: NIFEdipine XL 60 MG TAB PO SCH (10:00)
[2019-05-17] MEDS: LISINOPRIL 20 MG TAB PO SCH (10:00)
[2019-05-17] MEDS: PANTOPRAZOLE 40 MG INJ IV SCH (10:00)
[2019-05-17] MEDS: CHLORTHALIDONE 25 MG TAB PO SCH (10:01)
--- NOTE | 2019-05-17 10:04 | Discharge Summary ---
Providers - Providers Date of Admission: 05/12/19 15:59 Date of discharge: 05/17/19 Attending physician: UCHE DOYLE 05/12/19 21:27 Consult to Physician [CONS] Routine Comment: Consulting Provider: TRISH CORNEJO Physician Instructions: Reason For Exam: chest pain 05/16/19 15:21 Consult to Cardiac Rehabilitation [CONS] Routine Reason For Exam: Cardiac Rehab Evaluation 05/16/19 16:11 Consult to Physician [CONS] Routine Comment: Consulting Provider: JUSTYNA ESCOBAR Physician Instructions: Reason For Exam: Intractable N/V Primary care physician: [employer] Hospitalization Condition: Fair Pertinent studies: Lexiscan stress test, CT angiogram of the chest, left heart cardiac catheterization Hospital course: 64-year-old Mrs. Escobar was admitted for evaluation of chest pain Troponin 3 were negative. Cardiology consult was obtained Her d-dimer was elevated. CTA chest revealed no acute PE she had a stress test, which was positive with reversible defect in the apical inferior area Yesterday she had left heart cardiac catheterization which showed normal coronaries However her blood pressure was also severely elevated Blood pressure medications were adjusted and this morning her blood pressure is grossly in the normal range Patient is medically stable for discharge Cardiology note reviewed and discussed with Dr. Cornejo Disposition: DC-01 TO HOME OR SELFCARE Time spent for discharge: 38 min Core Measure Documentation - Palliative Care Palliative Care/ Comfort Measures: Not Applicable - Core Measures Any of the following diagnoses?: none Exam - Constitutional Vitals: Temp Pulse Resp BP Pulse Ox 98.7 F 82 18 124/50 96 05/17/19 08:48 05/17/19 08:48 05/17/19 08:48 05/17/19 08:48 05/17/19 08:48 General appearance: Present: no acute distress - EENT Eyes: Present: PERRL, EOM intact ENT: hearing intact, clear oral mucosa - Neck Neck: Present: supple, normal ROM - Respiratory Respiratory effort: normal Respiratory: bilateral: CTA - Cardiovascular Rhythm: regular Heart Sounds: Present: S1 & S2 - Extremities Extremities: No edema Peripheral Pulses: within normal limits - Abdominal General gastrointestinal: Present: soft, tender (across the upper abdomen). Absent: hepatomegaly, splenomegaly Female genitourinary: Present: deferred - Rectal Rectal Exam: deferred - Integumentary Integumentary: Present: clear - Musculoskeletal Musculoskeletal: strength equal bilaterally - Psychiatric Psychiatric: appropriate mood/affect - Neurologic Neurologic: CNII-XII intact Plan Activity: no restrictions Weight Bearing Status: Full Weight Bearing Diet: regular, low fat, low cholesterol, low salt Follow up with: PRIMARY CARE,MD [Primary Care Provider] - 3-5 Days Prescriptions: HYDROcodone/APAP 5-325 [[place] 5-325 mg TAB] 1 each PO Q8HR PRN #10 tablet PRN Reason: Pain, Moderate (4-6) NIFEdipine XL [Procardia Xl] 60 mg PO QDAY #30 tablet Chlorthalidone [Thalitone] 25 mg PO QDAY #60 tablet Lisinopril [Zestril TAB] 20 mg PO QDAY #30 tablet
--- NOTE | 2019-05-17 11:53 | Gastroenterology Consultation ---
History of Present Illness - Reason for Consult Consult date: 05/17/19 N/V Requesting physician: CHLOE ROBLES - History of Present Illness Patient is a 64 y/o female who presented with c/o CP with ACS ruled out by cardiology (s/p cardiac catheterization with normal coronary arteries; EF 60%). GI has been consulted for atypical chest pain and N/V. This morning patient was sitting up in bed w/o acute distress. She reports feeling better with CP (described as a sharp pain that last for a few seconds and then resolves; location substernal) now improved. She has had intermittent N/V since gastric surgery last year at [facility] but states she believes her episode of N/V yesterday was associated with a migraine following her catheterization, which is also now improved. Tolerated diet this am for breakfast. Denies fever, SOB, wt loss, abd pain, signs of bleeding or LGI symtoms such as diarrhea or constipation. Last EGD within the last 3 months per pt reports with no acute findings (record unavailable). According to chart review, patient is following by [facility] (last saw Dr. Mccracken 11/2018) and was referred to Dr. Cali ([id number]-hvdqejrev-lwkzahx surgeon) last year following an EGD (09/2017) that revealed a duodenal stricture with pathology benign and underwent an open gastrojejunostomy 10/2017. Past History Past Medical History: hypertension, other (obesity) Past Surgical History: bowel surgery Social history: no significant social history Family history: no significant family history Medications and Allergies Allergies Allergy/AdvReac Type Severity Reaction Status Date / Time Penicillins Allergy Rash Verified 05/12/19 12:22 Home Medications Medication Instructions Recorded Confirmed Last Taken Type Albuterol Sulfate [Ventolin HFA] 2 puff IH Q4H PRN #1 hfa.aer.ad 06/24/13 05/12/19 05/12/19 Rx Chlorthalidone [Thalitone] 25 mg PO QDAY #60 tablet 05/17/19 Unknown Rx HYDROcodone/APAP 5-325 [[place] 1 each PO Q8HR PRN #10 tablet 05/17/19 Unknown Rx 5-325 mg TAB] Lisinopril [Zestril TAB] 20 mg PO QDAY #30 tablet 05/17/19 Unknown Rx NIFEdipine XL [Procardia Xl] 60 mg PO QDAY #30 tablet 05/17/19 Unknown Rx Active Meds: Active Medications Acetaminophen (Tylenol) 650 mg PO Q4H PRN PRN Reason: Pain MILD(1-3)/Fever >100.5/PORTILLO Last Admin: 05/17/19 07:18 Dose: 650 mg Documented by: Acetaminophen/Hydrocodone Bitart ([place] 5/325) 1 each PO Q4H PRN PRN Reason: Pain, Moderate (4-6) Last Admin: 05/16/19 15:55 Dose: 1 each Documented by: Albuterol (Proventil) 2.5 mg IH Q4HRT PRN PRN Reason: Cough Chlorthalidone (Thalitone) 25 mg PO QDAY [facility] Last Admin: 05/17/19 10:01 Dose: 25 mg Documented by: Hydralazine HCl (Apresoline) 10 mg IV Q4HR PRN PRN Reason: Blood Pressure Last Admin: 05/16/19 17:50 Dose: 10 mg Documented by: Lisinopril (Zestril) 20 mg PO QDAY [facility] Last Admin: 05/17/19 10:00 Dose: 20 mg Documented by: Metoclopramide HCl (Reglan) 10 mg IV Q8H PRN PRN Reason: Nausea And Vomiting Last Admin: 05/16/19 20:27 Dose: 10 mg Documented by: Morphine Sulfate (Morphine) 1 mg IV Q4H PRN PRN Reason: pain Last Admin: 05/16/19 17:49 Dose: 1 mg Documented by: Nifedipine (Procardia Xl) 60 mg PO QDAY [facility] Last Admin: 05/17/19 10:00 Dose: 60 mg Documented by: Ondansetron HCl (Zofran) 4 mg IV Q8H PRN PRN Reason: Nausea And Vomiting Last Admin: 05/16/19 16:06 Dose: 4 mg Documented by: Pantoprazole Sodium (Protonix) 40 mg IV BID [facility] Last Admin: 05/17/19 10:00 Dose: 40 mg Documented by: Promethazine HCl (Phenergan) 25 mg PO Q6HR PRN PRN Reason: Nausea Last Admin: 05/16/19 17:09 Dose: 25 mg Documented by: Sodium Chloride (Sodium Chloride Flush Syringe 10 Ml) 10 ml IV BID [facility] Last Admin: 05/17/19 10:01 Dose: 10 ml Documented by: Sodium Chloride (Sodium Chloride Flush Syringe 10 Ml) 10 ml IV PRN PRN PRN Reason: LINE FLUSH medications reviewed/updated as required Review of Systems - Review of Systems All systems: negative Cardiovascular: chest pain Gastrointestinal: nausea, vomiting Exam - Constitutional Vital Signs: Temp Pulse Resp BP Pulse Ox 98.7 F 82 18 124/50 96 05/17/19 08:48 05/17/19 08:48 05/17/19 08:48 05/17/19 08:48 05/17/19 08:48 General appearance: no acute distress, obese - EENT Eyes: PERRL, EOM intact ENT: hearing intact - Respiratory Respiratory effort: normal Respiratory: bilateral: CTA - Cardiovascular Rhythm: regular - Gastrointestinal General gastrointestinal: Present: soft, non-tender, non-distended, normal bowel sounds, other (+scar from previous surgery) - Neurologic Neurological: alert and oriented x3 - Labs CBC & Chem 7: 05/12/19 13:33 05/13/19 05:10 Lab Results: Laboratory Results - last 24 hr 05/16/19 05/16/19 05/16/19 12:35 18:44 21:07 POC Glucose 78 111 H 141 H 05/17/19 08:54 POC Glucose 121 H Assessment and Plan 1.Atypical chest pain (ACS ruled out; s/p cardiac cath with normal coronary arteries) 2.N/V-chronic; improved 3.s/p open gastrojejunostomy 10/2017 benign duodenal stricture (Dr. Cali at [facility]) -last EGD within the past 3 months with no acute findings per pt report (followed by [facility]; record unavailable) -s/p open gastrojejunostomy 10/[address] Cali ([id number]-yukxxwu surgeon) at [facility] 09/18 benign duodenal stricture -patient with chronic intermittent N/V since surgery as above with intermittent substernal pain (possible nerve damage vs other) -clinically, patient reports feeling better today with CP and N/V now improved. Tolerated diet this am for breakfast. -no plan for repeat EGD at this time -continue PPI and supportive care -patient okay to be d/c per GI standpoint with recommendations for f/u with primary GI for further workup/management -will sign off, please if needed
[2019-05-17 12:00] VITALS: BP 140/64
[2019-05-17] MEDS: HYDROcodone/ACETAMINOPHEN 5-325 MG TAB PO PRN (13:03)
== END 2019-05-17 14:15 | disposition home or self-care (01) | DRG 287 ==
LOC: ED 10:15 → 4A 15:59
PROVIDERS: ADMIT Internal Medicine; ATTEND Internal Medicine
PROC: 4A023N7 Measurement of Cardiac Sampling and Pressure, Left Heart, Percutaneous Approach (ICD-10-PCS; principal; 2019-05-16)
PROC: B2111ZZ Fluoroscopy of Multiple Coronary Arteries using Low Osmolar Contrast (ICD-10-PCS; 2019-05-16)
PROC: B2151ZZ Fluoroscopy of Left Heart using Low Osmolar Contrast (ICD-10-PCS; 2019-05-16)
DX: R07.89 Other chest pain (principal); E44.1 Mild protein-calorie malnutrition; Z68.41 Body mass index [BMI] 40.0-44.9, adult; I10 Essential (primary) hypertension; E66.01 Morbid (severe) obesity due to excess calories; J44.9 Chronic obstructive pulmonary disease, unspecified; M19.90 Unspecified osteoarthritis, unspecified site; R73.9 Hyperglycemia, unspecified; Z79.899 Other long term (current) drug therapy; Z88.0 Allergy status to penicillin; Z71.3 Dietary counseling and surveillance; Z90.3 Acquired absence of stomach [part of]
CPT/HCPCS: 36415; 71046; 71275; 78452; 80053; 82550; 82553; 82962; 83036; 83880; 84484; 85025; 85379; 85610; 93005; 93010; 93017; 93458; 94640; 96374; G0378; A9502; C1894; C9113; J0360; J1170; J1644; J2250; J2270; J2405; J2765; J2785; J3010; J7030; J7040; Q0169; Q9967